=== PATIENT | male | born 1990 | race Caucasian/White ===

== ENCOUNTER 2018-08-14 13:37 | Emergency (ER) | payer SELFPAY ==
[~2018-08-14] VITALS: Ht 185.4 cm; Wt 79.4 kg
[2018-08-14] MEDS ORDERED: IV NS 0.9% 1,000 ML BAG IV ONE (15:00)
[2018-08-14 16:00] VITALS: BP 138/87
== END 2018-08-14 16:07 | disposition home or self-care (01) ==
LOC: ER 13:39
DX: T40.691A Poisoning by other narcotics, accidental (unintentional), initial encounter (principal); F12.90 Cannabis use, unspecified, uncomplicated; R94.31 Abnormal electrocardiogram [ECG] [EKG]; Z98.890 Other specified postprocedural states; Y92.89 Other specified places as the place of occurrence of the external cause
CPT/HCPCS: 93005; 99283; J7030